=== PATIENT | female | born 1950 | race Caucasian/White ===

== ENCOUNTER 2021-10-02 06:42 | Day surgery (SDC) | payer MEDICARE ==
[~2021-10-02] VITALS: Ht 157.5 cm; Wt 97.9 kg
[~2021-10-02 06:42] MED LIST: LEVSOD112 PO
--- NOTE | 2021-10-02 07:18 | NUR ---
10/02/21 0718 JUAN J LYON @ 0707, FLAKITO @ 07
== END 2021-10-02 08:34 | disposition home or self-care (01) ==
LOC: ORSCSDS 06:42
PROVIDERS: Ophthalmology
PROC: 08RJ3JZ Replacement of Right Lens with Synthetic Substitute, Percutaneous Approach (ICD-10-PCS; principal; 2021-10-02 08:00)
DX: H25.11 Age-related nuclear cataract, right eye (principal); I10 Essential (primary) hypertension; E03.9 Hypothyroidism, unspecified; E66.9 Obesity, unspecified; Z68.39 Body mass index [BMI] 39.0-39.9, adult; Z79.899 Other long term (current) drug therapy
CPT/HCPCS: J2001; J2250; J3010; J3301; J7040; V2632